=== PATIENT | female | born 1995 | race Caucasian/White ===

== ENCOUNTER 2017-01-27 12:39 | Emergency (ER) | payer MEDICAID ==
[~2017-01-27] VITALS: Ht 157.4 cm; Wt 110.2 kg
[~2017-01-27 12:39] MED LIST: BACTRIM DS 8001 TA1 PO; MACROBID100 M1 PO; METFORMIN500 MG PO; METROGEL1% TP; ZOFRAN4 MG PO
[2017-01-27] MEDS ORDERED: PROCTOFOAM15 GM R (14:21)
[2017-01-27] MEDS ORDERED: NAPROSYN500 MG PO (14:21)
[2017-01-27] MEDS ORDERED: FLONASE ALLERG9.9 ML NAS (14:21)
[2017-01-27] MEDS ORDERED: CLARITIN10 MG PO (14:21)
== END 2017-01-27 15:40 | disposition home or self-care (01) ==
LOC: ED 12:39
DX: K64.9 Unspecified hemorrhoids (principal); M79.671 Pain in right foot; M79.672 Pain in left foot; B34.9 Viral infection, unspecified; F17.200 Nicotine dependence, unspecified, uncomplicated; Z88.8 Allergy status to other drugs, medicaments and biological substances

== ENCOUNTER 2019-01-17 14:11 | Emergency (ER) | payer OTHER ==
[~2019-01-17] VITALS: Ht 157.4 cm; Wt 104.3 kg
[~2019-01-17 14:11] MED LIST changes: +CLARITIN10 MG PO; +FLONASE ALLERG9.9 ML NAS; +NAPROSYN500 MG PO; +PROCTOFOAM15 GM R
[2019-01-17] MEDS ORDERED: AMOXICILLIN500 M2 PO (14:57)
[2019-01-17] MEDS ORDERED: NAPROSYN500 MG PO (14:57)
== END 2019-01-17 15:10 | disposition home or self-care (01) ==
LOC: ED 14:11
DX: K08.89 Other specified disorders of teeth and supporting structures (principal); Z88.1 Allergy status to other antibiotic agents; Z79.84 Long term (current) use of oral hypoglycemic drugs

== ENCOUNTER 2020-08-19 18:12 | Emergency (ER) | payer OTHER ==
[~2020-08-19 18:12] MED LIST changes: +AMOXICILLIN500 M2 PO
[2020-08-19 19:53] LABS: BILIRUBIN 2+ (Negative); BLOOD 1+ (Negative); CLARITY Turbid (Clear); COLOR Orange (Yellow); GLUCOSE Negative (Negative); KETONE Negative (Negative); LEUKO ESTERASE 2+ (Negative); NITRITE Positive (Negative); SPECIFIC GRAVITY >= 1.030 (1.001-1.030)
[2020-08-19 20:02] LABS: EPITHELIAL CELLS TNTC
[2020-08-19] MEDS ORDERED: CIPRO500 MG PO (20:02)
== END 2020-08-19 20:14 | disposition home or self-care (01) ==
LOC: ED 18:12
PROVIDERS: Internal Medicine
DX: N39.0 Urinary tract infection, site not specified (principal); Z88.8 Allergy status to other drugs, medicaments and biological substances; Z79.899 Other long term (current) drug therapy; Z79.84 Long term (current) use of oral hypoglycemic drugs

== ENCOUNTER 2022-08-18 04:28 | Emergency (ER) | payer OTHER ==
[~2022-08-18] VITALS: Ht 157.4 cm; Wt 118.8 kg
[~2022-08-18 04:28] MED LIST changes: +CIPRO500 MG PO
== END 2022-08-18 05:10 | disposition short-term general hospital (02) ==
LOC: ED 04:28
DX: O66.9 Obstructed labor, unspecified (principal); Z3A.36 36 weeks gestation of pregnancy; Z88.8 Allergy status to other drugs, medicaments and biological substances; Z90.89 Acquired absence of other organs; Z98.890 Other specified postprocedural states

== ENCOUNTER → 2025-03-25 | Outpatient (CLI) | payer OTHER ==
[2025-03-25 13:35] LABS: BASO # 0.0 10*3/uL (0.0-0.1); BASO % 0.3 % (0.0-1.0); EOS # 0.2 10*3/uL (0.0-0.4); EOS % 1.5 % (1.0-4.0); MEAN CELL VOLUME 92.2 fl (81.0-99.0); MEAN CORPUSCULAR HGB 29.2 pg (27.0-31.0); MEAN PLATELET VOLUME 11.2 fl (9.6-12.3); MONO # 0.7 10*3/uL (0.1-1.0); MONO % 5.5 % (3.0-9.0); NEUT # 7.8 10*3/uL (2.3-7.9); NEUT % 63.9 % (47.0-73.0); NUCLEATED RED BLOOD CELL 0.0 % (0.0-0.0); NUCLEATED RED BLOOD CELL 0.0 10*3/uL (0.0-0.0); PLATELET COUNT AUTOMATED 240 10*3/uL (130-400); RED CELL DISTRI WIDTH 14.4 % (0-14.5)
== END | disposition home or self-care (01) ==
LOC: LAB 12:33 → US 13:00
PROVIDERS: ATTEND Obstetrics & Gynecology
DX: O26.891 Other specified pregnancy related conditions, first trimester (principal); D72.829 Elevated white blood cell count, unspecified; Z3A.08 8 weeks gestation of pregnancy